=== PATIENT | female | born 1985 | race Caucasian/White ===

== ENCOUNTER → 2018-11-20 | Outpatient (REF) | payer OTHER, MEDICAID ==
[2018-11-24 10:51] LABS: HPV LOW VOL RFLX Negative (Negative)
== END ==
LOC: M LAB REF 17:57
PROVIDERS: ATTEND Advanced Practice Midwife
DX: Z12.4 Encounter for screening for malignant neoplasm of cervix (principal)

== ENCOUNTER → 2020-06-19 | Outpatient (REF) | payer OTHER | LOC: M PLALAB 12:50 | PROVIDERS: ATTEND Advanced Practice Midwife | DX: N92.0 Excessive and frequent menstruation with regular cycle (principal) ==

== ENCOUNTER → 2020-07-13 | Outpatient (REF) | payer OTHER | LOC: M SFHCWAGY 10:13 | PROVIDERS: ATTEND Advanced Practice Midwife | DX: N92.0 Excessive and frequent menstruation with regular cycle (principal) ==

== ENCOUNTER → 2020-07-14 | Outpatient (CLI) | payer OTHER ==
--- NOTE | 2020-07-15 04:12 | REP ---
INDICATION: N92.0 EXCESSIVE AND FREQUENT MENSTRUATION COMPARISON: None. TECHNIQUE: Transabdominal pelvic ultrasound followed by transvaginal examination for better evaluation of the endometrium and adnexa with color Doppler evaluation of the ovaries. FINDINGS: Bladder is unremarkable and measures 9.6 x 5.5 x 9.3 cm. Normal anteverted uterus measures 8.6 x 3.4 x 4.5 cm. The endometrial complex measures 3.7 mm thickness. No discrete uterine or endometrial abnormalities are appreciated. Bilateral ovaries are normal in appearance and vascularity without evidence for torsion. Right ovary measures 3.5 x 2.1 x 1.8 cm; R I = 0.41. Left ovary measures 2.6 x 1.6 x 1.7 cm; R I = 0.50. No pelvic fluid or adnexal mass lesion. IMPRESSION: Normal pelvic ultrasound. <Electronically signed by Tonio Bower > 07/15/20 0404
== END ==
LOC: M WHC 12:23
PROVIDERS: ATTEND Advanced Practice Midwife
DX: N92.0 Excessive and frequent menstruation with regular cycle (principal)